=== PATIENT | male | born 1950 | race Caucasian/White ===

== ENCOUNTER → 2018-10-14 12:20 | Outpatient (CLI) | payer OTHER, SELFPAY ==
--- NOTE | 2018-10-14 | DI.RAD.S_ITS ---
PROCEDURE: XR CHEST 2V INDICATIONS: CHRONIC BRONCHITIS TECHNIQUE: 2 views of the chest were acquired. COMPARISON: CR, CHEST 2VW, 06/13/2014, 9:12. CR, CHEST 2VW, 06/10/2013, 10:53. FINDINGS: Surgical changes and devices: None. Lungs and pleura: Lungs are clear. No pleural effusions or pneumothorax. Mediastinum: Mediastinal contours are normal. Heart size is normal. Bones and chest wall: No suspicious bony abnormalities. Soft tissues appear unremarkable. IMPRESSION: Mild interstitial prominence, previously present, no acute disease. Dictated by: Tal Dinero M.D. on 10/14/2018 at 14:58 Approved by: Tal Dinero M.D. on 10/14/2018 at 14:58
--- NOTE | 2018-10-16 16:39 | PM.PFT.1 ---
Pulmonary Function Test Referral & Results Date Patient Seen: 10/14/18 Requesting provider: Jerry Smalls Results: The spirometry demonstrates an FVC of 4.21 L which is 88% of predicted. The FEV1 was measured at 2.77 L which is 79% of predicted. The FEV1/FVC ratio was 66 which is 90% of predicted. Following the administration of bronchodilator there was 13% improvement in FEV1 and a 72% improvement in FEF 25-75%. Lung volumes show an SVC of 4.12 L which is 84% of predicted. The diffusing capacity was measured at 20. 0 4 which is 80% of predicted. No hemoglobin value was provided, so no correction for potential anemia could be made, if appropriate. The maximum voluntary ventilation was reduced Interpretation: This study demonstrates perhaps very mild obstructive lung disease with some limited evidence of benefit following bronchodilator based on improvement in FEV1 There may also be minimal restrictive lung disease present based on slight reduction in lung volumes There is also slight reduction in diffusing capacity suggesting an element of disease at the capillary alveolar level Clinical correlation suggested
== END ==
PROVIDERS: Visit Provider Orthopaedic Surgery
DX: J42 Unspecified chronic bronchitis (principal)
CPT/HCPCS: 71046; 94060; 94726; 94729